=== PATIENT | male | born 1955 | race Caucasian/White ===

== ENCOUNTER 2017-12-24 01:25 | Inpatient (IN) | payer OTHER ==
[~2017-12-24 01:25] MED LIST: LISINOPRIL10 M1 PO; LOPRESSOR50 M1 PO; XARELTO10 M1 PO
--- NOTE | 2017-12-24 09:47 | Admission Core Measures ---
Acute Coronary Syndrome (CM) ACS Core Measures Acute Coronary Syndrome Diagnosis No Congestive Heart Failure (NEW) CHF Core Measures Congestive Heart Failure Diagnosis No Cerebrovascular Accident (NEW) CVA Core Measures CVA/TIA Diagnosis No Venous Thromboembolism VTE Core Daniel (View Protocol) VTE Risk Factors Surgery No Mechanical VTE Prophylaxis d/t N/A MechProphylax Ordered No VTE Pharm Prophylaxis d/t NA PharmProphylax ordered Problem List As ranked by this Provider includes Assessment & Plan 1. Unilateral primary osteoarthritis, left hip HOME MEDS Home Med List Lisinopril 10 MG TABLET 1 TAB PO BID HTN (Reported) Metoprolol Tartrate (Lopressor) 50 MG TABLET 1 TAB PO BID CARDIAC (Reported) Rivaroxaban (Xarelto) 10 MG TABLET 1 TAB PO DAILY CARDIAC (Reported)
--- NOTE | 2017-12-24 09:52 | Surg Short-stay <48hrs Dis Sum ---
Visit Information Visit Dates Admission Date: 12/24/17 Discharge Date: 12/26/17 Surgical Short Stay DC Summary Admission Diagnosis: Primary osteoarthritis, left hip Final Diagnosis: Same, status post left total hip arthroplasty Procedure(s): Left total hip arthroplasty Summary/Significant Findings: Patient was admitted to the hospital for an elective left total hip replacement. Procedure was tolerated well and patient was transferred to a general surgical floor. Diet was advanced and tolerated. Physical therapy performed evaluation and treatment. On post op day 1, following a PT treatment, the patient became dizzy, hypotensive and diaphoretic. EKG was evaluated and showed rate controlled atrial fibrillation. A bolus was given resulting in a resolution of symptoms. The patient was transferred to a telemetry floor for further monitoring due to his history of afib. He remained asymptomatic. At time of hospital discharge, vital signs were stable, neurovascular status was intact, and pain was controlled with the use of oral pain medications. was consulted on 12/26/17 for a short episode of rapid afib while the patient was out of bed to the bathroom, which resolved once the patient was resting in bed. After discussing with and , it was decided the eliquis 2.5mg BID dose would be continued until POD#5, when his home dose of xarelto 20 mg daily will be resumed for his chronic afib. also spoke with his ore tester. Condition at Discharge: Stable Discharge Disposition: home health services Discharge instructions provided to patient/family: Yes Post discharge follow-up plan: Follow up with Dr. Villagran in 6 weeks from date of surgery. Please call his office to schedule/confirm this appointment. Copies to: Camilo Galeana MD; Obi Mahan MD
[2017-12-24] MEDS ORDERED: OMEPRAZOLE20 M2 PO (09:58)
[2017-12-24] MEDS ORDERED: DILAUDID2 M1 PO (09:58)
[2017-12-24] MEDS ORDERED: COLACE100 M1 PO (09:58)
[2017-12-24] MEDS ORDERED: MIRALAX17 G1 PO (09:58)
[2017-12-24] MEDS ORDERED: ELIQUIS2.5 M1 PO (09:58)
--- NOTE | 2017-12-24 10:03 | Patient Discharge Instructions ---
Discharge Instructions General Discharge Information You were seen/treated for: Left hip pain due to osteoarthritis You had these procedures: Left total hip arthroplasty Watch for these problems: Increasing pain despite the use of pain medication Increasing redness, warmth or swelling Drainage of any type from incision Inability to bear weight on operative leg Persistent nausea and vomiting Fever greater than 101.5 degrees Other wound care: Please keep wound clean and dry. No ointments or lotions of any type on or near incision. Your dressing will be changed by your nurse on the second day after your surgery. Daily dry dressing changes are recommended each day thereafter. You may shower 48hr after surgery. Do not soak your wound- no tub baths or swimming. Special Instructions: Eliquis: You are taking this medication to help prevent blood clot formation. Take as directed until 12/28/18, and then resume xarelto on 12/29/17. DO NOT TAKE XARELTO WHILE TAKING ELIQUIS Also indocin will be taken three times/day along with all other prescribed medication for ten days to minimize left hip heterotopic ossification Omeprazole: Take this medication to protect your stomach lining while taking high dose NSAIDs. Constipation: Pain medication can cause constipation. It is recommended that you take Colace and miralax daily. You may discontinue this medication if you develop loose stool or diarrhea. If you wish to continue this medication, it is available over the counter. If you are unable to move your bowels or pass gas after several days, please contact your doctor. Diet Continue normal diet: Yes Activity Activity Limited to: Weight bear as tolerated Other activity limits: Use assisted device as needed Acute Coronary Syndrome Inclusion Criteria At DC or during hospital stay patient has or had the following: ACS DIAGNOSIS No Discharge Core Measures Meds if any: Prescribed or Continued at Discharge Meds if any: NOT Prescribed or Continued at Discharge Congestive Heart Failure Inclusion Criteria At DC or during hospital stay patient has or had the following: CHF DIAGNOSIS No Discharge Core Measures Meds if any: Prescribed or Continued at Discharge Meds if any: NOT Prescribed or Continued at Discharge Cerebrovascular accident Inclusion Criteria At DC or during hospital stay patient has or had the following: CVA/TIA Diagnosis No Discharge Core Measures Meds if any: Prescribed or Continued at Discharge Meds if any: NOT Prescribed or Continued at Discharge Venous thromboembolism Inclusion Criteria VTE Diagnosis No VTE Type NONE VTE Confirmed by (Test) NONE Discharge Core Measures - Per Current guidelines, there needs to be overlap - treatment for the first 5 days of Warfarin therapy. - If discharged on Warfarin prior to 5 days of - overlap therapy, the patient will need to be - assessed for post discharge needs including - *Post discharge parental anticoagulation - *Warfarin and/or parental anticoagulation education - *Follow up date to check INR post discharge At least 5 days overlap therapy as Inpatient No Meds if any: Prescribed or Continued at Discharge Note: Overlap Therapy is Warfarin and Anticoagulant Meds if any: NOT Prescribed or Continued at Discharge
[2017-12-24] MEDS ORDERED: INDOMETHACIN25 M1 PO (11:10)
--- NOTE | 2017-12-24 12:40 | RADIOLOGY REPORT ---
EXAMINATION: XR HIP, LEFT CLINICAL INFORMATION: Status post left total hip replacement COMPARISON: None TECHNIQUE: Two views of the left hip. FINDINGS: Prosthetic components of the left total hip arthroplasty are appropriately aligned. No periprosthetic fracture. Cerclage wire present along the trochanteric region. Gas from recent surgery is present in the surrounding soft tissues. IMPRESSION: Normal postoperative appearance of the left total hip prosthesis.
[2017-12-24 14:25] VITALS: BP 118/70
--- NOTE | 2017-12-24 14:45 | PN- Orthopedic ---
See Addendum Subjective Subjective: POST-OP CHECK Pt in bed, pain controlled, both legs still slightly numb due to spinal. Denies nausea, hopson/ sob/cp. Tolerated clears or has not voided yet. Has not ambulated yet Objective Vital Signs and I&Os Vital Signs Date Time Temp Pulse Resp B/P B/P Pulse O2 O2 Flow FiO2 Mean Ox Delivery Rate 12/24 1425 97.4 73 14 118/70 97 Intake & Output 12/24 1600 12/24 0800 12/24 0000 12/23 1600 12/23 0800 12/23 0000 Intake Total Output Total Balance Patient 182 lb Weight Physical Exam: gen- NAD resp-clear cardio-rrr abd- nd, soft, nt ext-left hip soft, dressing clean and dry. 2+ PT pulse. distal motor function intact Assessment/Plan Assessment/Plan 62yo M SP L TARA POD0. stable Pain management PT- WBAT dvt ppx- ASA reg diet encourage IS regular home meds Core Measures Venous Thromboembolism VTE Risk Factors Surgery No Mechanical VTE Prophylaxis d/t N/A MechProphylax Ordered No VTE Pharm Prophylaxis d/t NA PharmProphylax ordered
[2017-12-24 16:00] VITALS: BP 95/63
[2017-12-24 18:00] VITALS: BP 90/70
--- NOTE | 2017-12-24 18:13 | Operative Report ---
Operative/Inv Procedure Report Surgery Date: 12/24/17 Name of Procedure: Left total hip replacement Pre-Operative Diagnosis: Primary left hip DJD Post-Operative Diagnosis: Same Estimated Blood Loss: 350 Surgeon/Site Specialist: Rafi Villagran MD Anesthesia: block Operative/Procedure Note Note: Description of Procedure: The patient was taken to the operating room and positively identified. After induction of spinal anesthesia and administration of appropriate pre-operative antibiotics, the patient was positioned supine on the operating room table and all bony prominences were well padded. After performing a surgical timeout, the left lower extremity was prepped and draped in the usual sterile fashion. A direct anterior approach was made to the left hip. The incision was carried sharply through superficial soft tissues to the level of the fascia. Meticulous hemostasis was maintained with Bovie electocautery. The fascia over the tensor fascia lexi muscle was opened sharply and the interval between the TFL and the sartorius was entered bluntly taking care to stay lateral to the lateral femoral cutaneous nerve. Retractors were placed around the femoral neck and the pericapsular fat was identified. The ascending branches of the lateral femoral circumflex vessels were identified and carefully coagulated. The pericapsular fat and anterior capsule were then resected. A napkin ring osteotomy was performed and the femoral head was removed without difficulty. Attention was then turned to the acetabulum. After appropriate placement of retractors, the acetabulum was exposed. Soft tissue was cleaned from the acetabular margin and notch. Overhanging osteophytes were removed and the teardrop was exposed. The acetabulum was then sequentially reamed to accept a 60 mm Raul Tritanium hemispherical solid shell. This was impacted into place in the appropriate position and fitted with a 36 mm Trident X3 zero degree polyethylene insert. Attention was then turned to the femur. After performing the appropriate ligament releases, the proximal femur was exposed. It was then sequentially broached to accept a size 8 Raul accolade 2 127 neck angle stem. This was trialed for leg length and stability. The trial component was removed and the final component was impacted into place. The trunnion was carefully cleaned and fit with a 36 mm, +0 Biolox delta ceramic femoral head. The hip was reduced and put through a full range of motion and found to be stable. The articular space was then irrigated with sterile saline. The periarticular soft tissues were infilitrated with Marcaine. The fascial layer was closed with interrupted #1 vicryl suture and the skin was re-approximated with interrupted 2 -0 vicryl. The skin was closed with a running 3-0 V-Lock suture. Steri-strips and a sterile dressing were applied. The patient was awakened and taken to the recovery room in satisfactory condition.
[2017-12-24 22:39] VITALS: BP 92/70
[2017-12-25 02:00] VITALS: BP 98/70
[2017-12-25 06:00] VITALS: BP 136/90
--- NOTE | 2017-12-25 07:47 | PN- Orthopedic ---
Subjective Subjective: mild pain L hip, controlled w pain meds. no acute events overnight. no other complaints. Objective Vital Signs and I&Os Vital Signs Date Time Temp Pulse Resp B/P B/P Pulse O2 O2 Flow FiO2 Mean Ox Delivery Rate 12/25 0600 97.7 84 14 136/90 97 Room Air 12/25 0200 98.2 68 16 98/70 96 Room Air 12/24 2239 98.3 89 18 92/70 96 12/24 212 89 92/70 12/24 212 89 92/70 12/24 2017 Room Air Room Air 12/24 1800 98.0 72 18 90/70 96 Room Air 12/24 1600 97.2 78 18 95/63 100 Room Air 12/24 1425 97.4 73 14 118/70 97 Intake & Output 12/25 0800 12/25 0000 12/24 1600 12/24 0800 12/24 0000 12/23 1600 Intake Total 480 600 Output Total 450 850 Balance -450 -370 600 Intake, IV 600 Intake, Oral 480 Output, Urine 450 850 Patient 186 lb 182 lb Weight Weight Bed scale Measurement Method Physical Exam: Well-developed well-nourished no apparent distress. HEENT: Atraumatic, extraocular motion intact Neck: Supple, no lymphadenopathy Respiratory: No respiratory distress Extremities: No edema Left lower extremity hip dressing in place, Dressing clean dry and intact Mild thigh swelling No signs of infection. No shortening or rotation Hip range of motion is limited and without unexpected pain Neurovascularly intact distally Bilateral calves are supple, nontender. Neuro: Alert and oriented x3 Psych: Mood affect normal, normal memory normal judgment. Skin: Warm and dry, no rash on exposed skin Assessment/Plan Assessment/Plan Postop day #1 status post left total hip arthroplasty anterior approach Perioperative antibiotics. Pain medication as needed. Out of bed Physical therapy, weightbearing as tolerated DC IV fluids Regular diet Follow a.m. labs Eliquis for DVT prophylaxis and hx of afib for 1w, then change back to xeralto ALPS for DVT prophylaxis Regular home meds Dressing change postop day 2 Possible discharge home later today with visiting nurse services if labs acceptable and she clears physical therapy Core Measures Venous Thromboembolism VTE Risk Factors Surgery No Mechanical VTE Prophylaxis d/t N/A MechProphylax Ordered No VTE Pharm Prophylaxis d/t NA PharmProphylax ordered
[2017-12-25 09:11] LABS: ABSOLUTE BASOPHIL COUNT 0.1 /CUMM (0.0-0.2); ABSOLUTE EOSINOPHIL COUNT 0 /CUMM (0.0-0.7); ABSOLUTE GRANULOCYTE CT 11.2 /CUMM (1.4-6.5); ABSOLUTE MONOCYTE COUNT 1.1 /CUMM (0.10-0.60); BASOPHIL % 0.7 % (0.0-2.0); EOSINOPHIL % 0.3 % (0-5); GRANULOCYTE % 77.5 % (42.2-75.2); HEMATOCRIT 40.3 % (42-52); MEAN CORPUSCULAR HGB 30.5 PG (27.0-31.0); MEAN CORPUSCULAR HGB CONC 33.7 G/DL (33.0-37.0); MEAN CORPUSCULAR VOLUME 90.6 FL (80.0-94.0); MEAN PLATELET VOLUME 9.9 FL (7.4-10.4); PLATELET COUNT 231 /CUMM (130-400); RBC DISTRIBUTION WIDTH 13.5 % (11.5-14.5); RED BLOOD CELL CT 4.45 /CUMM (4.70-6.10); WHITE BLOOD CELL COUNT 14.4 /CUMM (4.8-10.8)
--- NOTE | 2017-12-25 11:48 | Event Note ---
Event Note Event Note: Rapid response called for dizziness and diaphoresis after patient got oob and walked with physical therapy. There was no fall, there was no loss of consciousness. A stat EKG was ordered, patient while on monitors was found to be in controlled rate of atrial fibrillation. A bolus of 500 cc normal saline was ordered. Patient mentating well, Cranial Nerve assessment intact, was feeling resolution of symptoms. Will continue to monitor, will place on telemetry unit for overnight monitoring.
--- NOTE | 2017-12-25 12:25 | Cons- Medical ---
Huma Brown MD 12/25/17 1223: General Information and HPI Consulting Request Date of Consult: 12/25/17 Requested By: Rafi Villagran MD Reason for Consult: Episode of syncope, found to be in Low BP Source of Information: patient, old records Exam Limitations: no limitations History of Present Illness: Patient is a 62-year-old male with significant past medical history of hypertension, atrial fibrillation (2009) on Xeralto (5 -6 yrs) admitted for left total hip replacement for primary osteoarthritis of left hip. Patient underwent left total hip arthroplasty on 12/24/2017.Today rapid response was called after patient was feeling dizziness and diaphoresis while working with physical therapy.According to the event note patient was having atrial fibrillation with controlled heart rate. We will called to evaluate the patient and give opinion. He describes his episode that he was working with PT and walked on the floor and afterwards he sat down on the chair, he was okay but feeling a little bit weak and when he leans on his back he suddenly felt, nausea, dizziness, sweating, which lasted for less than a minute. He denies any chest pain, palpitation, shortness of breath, headache, abdominal pain, tongue bite, incontinence of the screw in the urine. The vital signs at that time was blood pressure 84/50, pulse 77, SPO2 100% on room air. She recovered completely within a minute without any confusion onwards. Since last couple of days his fluid and food intake is low, he has less amount of sleep. Of note he had couple of episodes of passing out in 2009 he was diagnosed as having, atrial fibrillation and hypertension. Initially he was treated with aspirin but later around 3-4 years ago continued on Xarelto. 1-1/2 years ago he again had passing out spell while playing tennis but recovered completely. Personal history -patient lives at home, walk without walker and started using crutches since last 3 or 4 days because of the pain in the left hip, denies smoking cigarettes though uses cigars occasionally, occasional use of alcohol, denies any illicit drug abuse. He had colonoscopy at the age of 14 which was normal. Past medical history - Atrial fibrillation -2009 Hypertension Family history - Mother and brother -diabetes Father -history of colon cancer Brother -lymphoma Allergies/Medications Allergies: Coded Allergies: No Known Allergies (12/23/17) NKA PER ANTIBIOTIC ORDER SHEET OF 12/23/17 (SJS) Home Med List: Apixaban (Eliquis) 2.5 MG TABLET 1 TAB PO BID CLOT PREVENTION FINISH ELIQUIS ON 12/28/17. RESUME XARELTO ON 12/29/17 Docusate Sodium (Colace) 100 MG CAPSULE 1 CAP PO BID CONSTIPATION Hydromorphone HCl (Dilaudid) 2 MG TABLET 1-2 TAB PO Q4-6 PRN PAIN Indomethacin 25 MG CAPSULE 1 CAP PO TID PAIN with food Lisinopril 10 MG TABLET 1 TAB PO BID HTN (Reported) Metoprolol Tartrate (Lopressor) 50 MG TABLET 1 TAB PO BID CARDIAC (Reported) Omeprazole 20 MG CAPSULE.DR 1 CAP PO DAILY ULCER PREVENTION Polyethylene Glycol 3350 (Miralax) 17 GRAM POWD.PACK 1 PAC PO DAILY CONSTIPATION dissolve in water Review of Systems Review of Systems Constitutional: Reports: no symptoms, weakness. Musculoskeletal: Reports: joint pain, joint swelling. Past History Medical History Cardiovascular: AFIB, hypertension Musculoskeletal: osteoarthritis Surgical History Surgical History: hip replacement Psychosocial History Where Do You Live? Home Smoking Status: Never Smoked Exam & Diagnostic Data Last 24 Hrs of Vital Signs/I&O Vital Signs Date Time Temp Pulse Resp B/P B/P Pulse O2 O2 Flow FiO2 Mean Ox Delivery Rate 12/25 0936 91 20 120/70 12/25 0936 91 20 120/80 12/25 0600 97.7 84 14 136/90 97 Room Air 12/25 0200 98.2 68 16 98/70 96 Room Air 12/24 2239 98.3 89 18 92/70 96 12/24 2127 89 92/70 12/24 2127 89 92/70 12/24 2017 Room Air Room Air 12/24 1800 98.0 72 18 90/70 96 Room Air 12/24 1600 97.2 78 18 95/63 100 Room Air 12/24 1425 97.4 73 14 118/70 97 Intake & Output 12/25 1600 12/25 0800 12/25 0000 Intake Total 1100 480 Output Total 450 850 Balance 650 -370 Intake, IV 600 Intake, Oral 500 480 Output, Urine 450 850 Patient 84.538 kg Weight Weight Bed scale Measurement Method Physical Exam General Appearance: well developed/nourished, no apparent distress, alert, awake , comfortable Head: atraumatic, normal appearance, active bleeding Eyes: Bilateral: normal appearance. Ears, Nose, Throat: normal pharynx, normal ENT inspection, hearing grossly normal Neck: normal inspection, supple, full range of motion, no JVD Respiratory: normal breath sounds, chest non-tender, no respiratory distress, quiet respiration, lungs clear Cardiovascular: irregularly irregular Peripheral Pulses: 4+ tibialis posterior (R), 4+ tibialis posterior (L), 4+ dorsalis pedis (R), 4+ dorsalis pedis (L) Gastrointestinal: soft, non-tender, no organomegaly Extremities: left side surgical area was non tender, no fluctuation, dry dressing, he is able to move his joint with slight pain Last 24 Hrs of Labs/Axel: Laboratory Tests 12/25/17 0821: Anion Gap 9, Estimated GFR > 60, BUN/Creatinine Ratio 22.5, CBC w Diff NO MAN DIFF REQ, RBC 4.45 L, MCV 90.6, MCH 30.5, MCHC 33.7, RDW 13.5, MPV 9.9, Gran % 77.5 H, Lymphocytes % 14.1 L, Monocytes % 7.4, Eosinophils % 0.3, Basophils % 0.7, Absolute Granulocytes 11.2 H, Absolute Lymphocytes 2.0, Absolute Monocytes 1.1 H, Absolute Eosinophils 0, Absolute Basophils 0.1 Diagnostic Data EKG Results Atrial fibrillation, heart rate 77, QTc 450, Assessment/Plan Assessment/Plan Patient is a 62-year-old male with significant past medical history of hypertension, atrial fibrillation (2009) on Xeralto (5 -6 yrs) admitted for left total hip replacement for primary osteoarthritis of left hip. Patient underwent left total hip arthroplasty on 12/24/2017.Today rapid response was called after patient was feeling dizziness and diaphoresis while working with physical therapy.According to the event note patient was having atrial fibrillation with controlled heart rate. We will called to evaluate the patient and give opinion. Vital signs -pulse 88, respiratory rate 18, blood pressure 108/80, SPO2 96% on room air. Blood workup showed hemoglobin 13.6, WBC 14.4, MCV 90.6, platelet count 231, serum sodium 141, potassium 4.2, chloride 106, anion gap 9, BUN 18, creatinine 0.8. Postop x-ray of the left hip -appropriately aligned prosthesis, no periprosthetic fracture. Assessment and plan - Patient is a 62-year-old male with past medical history of hypertension, atrial fibrillation currently on Eliquis for postop DVT prophylaxis, had episode of sudden onset of dizziness, nausea, sweating. He denies for any chest pain palpitation and shortness of breath. He denies for any pain in the left hip while having this symptoms. His vital signs showed pulse of 77, blood pressure 84/58. He was completely recovered after a minute. As his blood pressure was low he was given 500 cc of IV fluid. Currently his blood pressure is 122/84. It seems he had vasovagal. EKG was showing some nonspecific changes including P waves are not followed by QRS complex, as he is having history of atrial fibrillation and is on metoprolol, we discussed with patient navigator and according to them they are related to AF. Plan * Advised to transfer the patient to telemetry for overnight cardiac monitoring. * Orhtostatic BP * Gentel Hydration - NS 75cc/hr * If overnight telemetry monitoring does show any acute event, than will consider cardiology consult. * If Over[place] monitoring is uneventful and his vitals remain stable than we can plan for discharge, with advise to follow up with his patient navigator. Discussed with Dr Ennis. Problem List: 1. Unilateral primary osteoarthritis, left hip 2. Atrial fibrillation and flutter 3. Hypertension Consult Acknowledgment - Thank you for your consult request. Obinna NUR,[facility] 12/25/17 1509: Assessment/Plan Consult Acknowledgment - Thank you for your consult request. Attending Review Statement Attending Statement Attending Statement: examined this patient, discuss w/resident/PA/ACUPUNCTURE PHYSICIAN, agreed w/resident/PA/ACUPUNCTURE PHYSICIAN, reviewed EMR data (avail), discussed with nursing, discussed with case mgmt, reviewed images, amended to note Attending Assessment/Plan: 62 y/o m with pmh sig for hypertension, atrial fibrillation (2009) on Xeralto (5 -6 yrs) admitted for left total hip replacement for primary osteoarthritis of left hip. A R COLLECTIONS REP was called today after patient got up and walked with PT. Pt was slightly dizzy. He was put on the chair. There was no fall. Patient felt somewhat sweaty and lightheaded. After he sat, his symptoms started to disappear. He denies any chest pain, palpitations. Patient did mention that about few years ago he had these episodes off dizziness and syncope and his doctor had adjusted some of his medications. They have attempted cardioversion and years ago but that was unsuccessful. He never underwent any ablation. Over the last year and a half he has been maintained pretty well on his current medications. He currently denies any chest pain, palpitations, shortness of breath, headache. This seems like a vasovagal episode. Vital Signs Date Time Temp Pulse Resp B/P B/P Pulse O2 O2 Flow FiO2 Mean Ox Delivery Rate 12/25 1453 98.3 86 20 122/84 97 12/25 1306 88 18 108/80 96 Room Air 12/25 1228 98.1 82 14 116/84 96 Room Air 12/25 0936 91 20 120/70 12/25 0936 91 20 120/80 12/25 0600 97.7 84 14 136/90 97 Room Air 12/25 0200 98.2 68 16 98/70 96 Room Air 12/24 2239 98.3 89 18 92/70 96 12/24 212 89 92/70 12/24 2126 89 92/70 12/24 2017 Room Air Room Air 12/24 1800 98.0 72 18 90/70 96 Room Air 12/24 1600 97.2 78 18 95/63 100 Room Air on exam; aox3, nad. cv; s1,s2, irregular resp; clear abd; soft, nt, bs+ ext; no edema. ms: + dressing on the left hip. Laboratory Tests 12/25 0821 Chemistry Sodium (137 - 145 mmol/L) 141 Potassium (3.5 - 5.1 mmol/L) 4.2 Chloride (98 - 107 mmol/L) 106 Carbon Dioxide (22 - 30 mmol/L) 27 Anion Gap (5 - 16) 9 BUN (9 - 20 mg/dL) 18 Creatinine (0.7 - 1.2 mg/dL) 0.8 Estimated GFR (>60 ml/min) > 60 BUN/Creatinine Ratio (7 - 25 %) 22.5 Hematology CBC w Diff NO MAN DIFF REQ WBC (4.8 - 10.8 /CUMM) 14.4 H RBC (4.70 - 6.10 /CUMM) 4.45 L Hgb (14.0 - 18.0 G/DL) 13.6 L Hct (42 - 52 %) 40.3 L MCV (80.0 - 94.0 FL) 90.6 MCH (27.0 - 31.0 PG) 30.5 MCHC (33.0 - 37.0 G/DL) 33.7 RDW (11.5 - 14.5 %) 13.5 Plt Count (130 - 400 /CUMM) 231 MPV (7.4 - 10.4 FL) 9.9 Gran % (42.2 - 75.2 %) 77.5 H Lymphocytes % (20.5 - 51.1 %) 14.1 L Monocytes % (1.7 - 9.3 %) 7.4 Eosinophils % (0 - 5 %) 0.3 Basophils % (0.0 - 2.0 %) 0.7 Absolute Granulocytes (1.4 - 6.5 /CUMM) 11.2 H Absolute Lymphocytes (1.2 - 3.4 /CUMM) 2.0 Absolute Monocytes (0.10 - 0.60 /CUMM) 1.1 H Absolute Eosinophils (0.0 - 0.7 /CUMM) 0 Absolute Basophils (0.0 - 0.2 /CUMM) 0.1 EKG shows atrial fibrillation with no acute ST-T wave changes. Assessment and recommendations: 62 y/o m with pmh sig for hypertension, atrial fibrillation (2009) on Xeralto (5 -6 yrs) admitted for left total hip replacement for primary osteoarthritis of left hip. A R COLLECTIONS REP was called today after patient got up and walked with PT. Pt was slightly dizzy. Medical consult was obtained for the management off presyncope. Patient is currently being transferred to telemetry. We will observe him overnight on the mill order scheduler. We would recommend gentle IV hydration 1 L of normal saline. Normal saline at 75 mL per hour 1 L. Encourage hydration by mouth as well as oral intake. Continue his home medications including his cardiac meds and Xarelto. For pain management patient is ordered adequate regimen. If any acute arrhythmias happen on mill order scheduler, would recommend getting cardiology consult. DVT px: Xarelto. Thank you a follow along with you.
[2017-12-25 12:28] VITALS: BP 116/84
[2017-12-25 13:06] VITALS: BP 108/80
[2017-12-25 14:53] VITALS: BP 122/84
[2017-12-25 20:25] VITALS: BP 124/78
[2017-12-26] VITALS: BP 110/76
[2017-12-26 04:02] VITALS: BP 114/80
--- NOTE | 2017-12-26 08:11 | PN- Orthopedic ---
Subjective Subjective: pod#2 s/p left andrea presyncopal episode yesterday requiring overnight telemetry did ambualte yesterday evening without cp, dizziness, palpitations, sob currently denies cp, sob, dizziness, palpitations, n+v Objective Vital Signs and I&Os Vital Signs Date Time Temp Pulse Resp B/P B/P Pulse O2 O2 Flow FiO2 Mean Ox Delivery Rate 12/26 0402 97.7 104 12 114/80 97 Room Air 12/26 0000 98.0 88 20 110/76 96 Room Air 12/25 2111 97.2 85 20 124/78 12/25 2111 97.2 85 20 124/78 12/25 2025 97.2 85 20 124/78 99 / 1453 98.3 86 20 122/84 97 12/25 1306 88 18 108/80 96 Room Air 12/25 1228 98.1 82 14 116/84 96 Room Air 12/25 0936 91 20 120/70 12/25 0936 91 20 120/80 Intake & Output 12/26 1600 12/26 0800 16 0000 12/25 1600 12/25 0800 12/25 0000 Intake Total 120 194 580 4049 480 Output Total 500 3400 1000 850 Balance -380 -3160 900 1200 -370 Intake, IV 600 1200 Intake, Oral 120 202 372 0842 480 Output, Urine 500 3400 1000 850 Patient 182 lb 186 lb Weight Weight Chair scale Bed scale Measurement Method Physical Exam: cv: irreg(h/o afib) lungs; clear abd: soft, +bs ext: drsg changed, wound c/d/i thigh soft, no calf tenderness bilat Assessment/Plan Assessment/Plan ortho stable no cardiac events overnight plan ok for home d/c from ortho standpoint will f/u with medicine prior to d/c cont current pharm regime Core Measures Venous Thromboembolism VTE Risk Factors Surgery No Mechanical VTE Prophylaxis d/t N/A MechProphylax Ordered No VTE Pharm Prophylaxis d/t NA PharmProphylax ordered
--- NOTE | 2017-12-26 08:19 | PN- Medicine Consult ---
Stephanie NUR,Huma 12/26/17 0818: Assessment/PlanMedical Consult Assessment/Plan Assessment: Patient is a 62-year-old male with significant past medical history of hypertension, atrial fibrillation (2009) on Xeralto (5 -6 yrs) admitted for left total hip replacement for primary osteoarthritis of left hip.Patient underwent left total hip arthroplasty on 12/24/2017.We advised to transfer the patient to telemetry for overnight telemetry monitoring, after he had an episode of vasovagal syncope. Currently patient is feeling much better, he denies for any episodes of chest pain, palpitation, sweating, dizziness, nausea, vomiting. He ate dinner and drank a lot of fluids. He feels more energetic.Yesterday evening he walked without any difficulties. Vital signs -temperature 99.9, pulse 81, respiratory 20, blood pressure 122/70, SPO2 96%. Physical exam -conscious, cooperative, alert 3, skin -pale, oral mucosa well hydrated, lungs -bilaterally equal air entry, heart S1-S2 normal, left sided wound -dressing is dry, surrounding area is not erythematous, slightly tender. Pulses are palpable both dorsalis pedis and posterior tibial. Telemetry monitoring -most of the time patient was on only 1 lead. So we cannot comment about exact event.His maximum heart rate was 118 - 130. Intake/output -3340/4400; -1060 Plan: * He had episodes of tachycardia, and probably need adjustment in the medication and cardiac consult. Can consider discharge per cardiology rcms.He need to follow his cardiolgy for further management. * Continue current medication for now. * Adequate pain management. * Post ope care per primary team. Discussed with Dr. Venita Yeboah. Subjective Subjective: Patient denies for any complains. Review of Systems Constitutional: Reports: no symptoms (See assesment). Objective Last 24 Hrs of Vital Signs/I&O Vital Signs Date Time Temp Pulse Resp B/P B/P Pulse O2 O2 Flow FiO2 Mean Ox Delivery Rate 12/26 0845 99.1 81 20 122/70 96 Room Air 12/26 0402 97.7 104 12 114/80 97 Room Air 12/26 0000 98.0 88 20 110/76 96 Room Air 12/25 2110 97.2 85 20 124/78 12/25 2110 97.2 85 20 124/78 12/25 2024 97.2 85 20 124/78 99 12/25 1453 98.3 86 20 122/84 97 12/25 1306 88 18 108/80 96 Room Air 12/25 1228 98.1 82 14 116/84 96 Room Air 12/25 0936 91 20 120/70 12/25 0936 91 20 120/80 Intake & Output 12/26 1600 12/26 0800 12/26 0000 Intake Total 120 240 Output Total 500 3400 Balance -380 -3160 Intake, Oral 120 240 Output, Urine 500 3400 Patient 82.327 kg Weight Weight Chair scale Measurement Method Current Medications: Current Medications Sig/Rani Start time Last Medication Dose Route Stop Time Status Admin Acetaminophen 1,000 MG Q6P PRN 12/25 1345 AC 12/25 N/A 1 UNIT IV 1348 Acetaminophen 650 MG Q4P PRN 12/25 1200 AC PO Apixaban 2.5 MG BID 12/25 2200 AC 12/26 PO 1034 Docusate Sodium 100 MG BID 12/25 2200 AC 12/26 PO 1034 Hydromorphone HCl 2 MG Q4P PRN 12/25 1200 AC PO Hydromorphone HCl 4 MG Q4P PRN 12/25 1200 AC 12/26 PO 0629 Indomethacin Sodium 25 MG TID 12/25 1600 AC 12/26 PO 1034 Lisinopril 10 MG BID 12/25 2200 AC 12/26 PO 1034 Melatonin 5 MG AT BEDTIME 12/25 2200 AC 12/25 PO 2111 Metoprolol Tartrate 50 MG BID 12/25 2200 AC 12/26 PO 1034 Omeprazole 20 MG DAILY AC 12/26 0700 AC 12/26 PO 0613 Ondansetron HCl 4 MG Q6P PRN 12/25 1200 AC IV Polyethylene Glycol 17 GM DAILY 12/26 1000 AC 12/26 PO 1035 Promethazine HCl 12.5 MG Q6P PRN 12/25 1200 AC IV 12/31 1014 Results Last 24 Hrs Lab/Axel Results: Not done Obinna NUR,Venita 12/26/17 1250: Attending MD Review Statement Attending Sign Off Attending Cosign Statement: I have: examined this patient, reviewed avalbl EMR data, personally reviewd images, discussd w/resident/PA/BESSEMER CONVERTER OPERATOR, discussed mgmt plan w/anali, discussed mgmt plan w/pt, agreed w/resident/PA/BESSEMER CONVERTER OPERATOR, amended to note. Other Findings: Patient seen and examined, overall he is doing much better. Denies any further episodes of dizziness. This morning patient became tachycardic between 130s to 150s on the pitch gatherer. Remains in afib. He wants to be tested for Lyme disease. Vital Signs Date Time Temp Pulse Resp B/P B/P Pulse O2 O2 Flow FiO2 Mean Ox Delivery Rate 12/26 1034 134 122/70 12/26 1034 122/70 12/26 0845 99.1 81 20 122/70 96 Room Air 12/26 0402 97.7 104 12 114/80 97 Room Air 12/26 0000 98.0 88 20 110/76 96 Room Air 12/25 2111 97.2 85 20 124/78 12/25 2111 97.2 85 20 124/78 12/25 2025 97.2 85 20 124/78 99 12/25 1453 98.3 86 20 122/84 97 12/25 1306 88 18 108/80 96 Room Air on exam; aox3, nad. cv; s1,s2, rrr resp; clear abd; soft, nmt, bs+ ext; no edema MS: + dressing left hip. Laboratory Tests 12/26 12/26 1220 1047 Chemistry Sodium Pending Potassium Pending Chloride Pending Carbon Dioxide Pending Anion Gap Pending BUN Pending Creatinine Pending BUN/Creatinine Ratio Pending Glucose Pending Phosphorus Pending Magnesium Pending Hematology CBC w Diff Pending WBC Pending RBC Pending Hgb Pending Hct Pending MCV Pending MCH Pending MCHC Pending RDW Pending Plt Count Pending MPV Pending Serology Lyme Disease Antibody Pending Assessment and recommendations: 62 y/o m with pmh sig for hypertension, atrial fibrillation (2009) on Xeralto (5 -6 yrs) admitted for left total hip replacement for primary osteoarthritis of left hip. ARTIST WOODBLOCK was called yesterday after patient got up and walked with PT. Pt was slightly dizzy. Medical consult was obtained for the management off presyncope. Patient was monitored on telemetry and this morning he did have episode of tachycardia. Recommend getting cardiology consult. We recommend continuing the current medications. I have added Lyme antibody as per patient's request. Patient is adequately hydrated and blood pressure stable. Pain management adequate. Ration is working with physical therapy. DVT px; Eliquis. Post op care per ortho. Needs Cardiology input before discharge.
[2017-12-26 08:45] VITALS: BP 122/70
--- NOTE | 2017-12-26 11:40 | Cons- Cardiology ---
General Information and HPI Consulting Request Date of Consult: 12/26/17 Requested By: Rafi Villagran MD Reason for Consult: ATRIAL FIBRILLATION WITH INTERMITTENTLY RAPID RATE; PRESYNCOPE Source of Information: patient Exam Limitations: no limitations History of Present Illness: Patient is a 62-year-old male who is usually followed Dr. Yomi Katz as his primary rn advice. The patient has a history of hypertension, atrial fibrillation on oral anticoagulation, who underwent left hip replacement on 12/24/2017, uneventfully. The patient was transferred to telemetry yesterday after feeling dizzy and lightheaded with diaphoresis and presyncope during physical therapy. At that time, his atrial fibrillation was stable and the rate was also stable. There were no other ECG changes noted. The patient was transferred to telemetry for further monitoring. Today, the patient is feeling well. He got up to go to the bathroom with no difficulty. While straining at the toilet he became slightly more tachycardic but otherwise has been fine with no issues. Allergies/Medications Allergies: Coded Allergies: No Known Allergies (12/23/17) NKA PER ANTIBIOTIC ORDER SHEET OF 12/23/17 ([facility]) Home Med List: Apixaban (Eliquis) 2.5 MG TABLET 1 TAB PO BID CLOT PREVENTION FINISH ELIQUIS ON 12/28/17. RESUME XARELTO ON 12/29/17 Docusate Sodium (Colace) 100 MG CAPSULE 1 CAP PO BID CONSTIPATION Hydromorphone HCl (Dilaudid) 2 MG TABLET 1-2 TAB PO Q4-6 PRN PAIN Indomethacin 25 MG CAPSULE 1 CAP PO TID PAIN with food Lisinopril 10 MG TABLET 1 TAB PO BID HTN (Reported) Metoprolol Tartrate (Lopressor) 50 MG TABLET 1 TAB PO BID CARDIAC (Reported) Omeprazole 20 MG CAPSULE.DR 1 CAP PO DAILY ULCER PREVENTION Polyethylene Glycol 3350 (Miralax) 17 GRAM POWD.PACK 1 PAC PO DAILY CONSTIPATION dissolve in water Current Medications: Current Medications Sig/Rani Start time Last Medication Dose Route Stop Time Status Admin Acetaminophen 1,000 MG Q6P PRN 12/25 1345 AC 12/25 N/A 1 UNIT IV 1348 Acetaminophen 650 MG Q4P PRN 12/25 1200 AC PO Acetaminophen 650 MG Q4P PRN 12/24 1345 DC 12/24 PO 2126 Apixaban 2.5 MG BID 12/25 2200 AC 12/26 PO 1034 Apixaban 2.5 MG BID 12/25 1000 DC 12/25 PO 0936 Docusate Sodium 100 MG BID 12/25 2200 AC 12/26 PO 1034 Docusate Sodium 100 MG BID 12/24 2200 DC 12/25 PO 0936 Hydromorphone HCl 2 MG Q4P PRN 12/25 1200 AC PO Hydromorphone HCl 4 MG Q4P PRN 12/25 1200 AC 12/26 PO 0629 Hydromorphone HCl 2 MG Q4P PRN 12/24 1345 DC PO Hydromorphone HCl 4 MG Q4P PRN 12/24 1345 DC 12/25 PO 0714 Indomethacin Sodium 25 MG TID 12/25 1600 AC 12/26 PO 1034 Indomethacin Sodium 25 MG TID 12/24 1600 DC 12/25 PO 0937 Lisinopril 10 MG BID 12/25 2200 AC 12/26 PO 1034 Lisinopril 10 MG BID 12/24 2200 DC 12/25 PO 0936 Melatonin 5 MG AT BEDTIME 12/25 2200 AC 12/25 PO 2111 Metoprolol Tartrate 50 MG BID 12/25 2200 AC 12/26 PO 1034 Metoprolol Tartrate 50 MG BID 12/24 2200 DC 12/25 PO 0936 Morphine Sulfate 2 MG Q2P PRN 12/25 0330 DC 12/25 IV 0329 Omeprazole 20 MG DAILY AC 12/26 0700 AC 12/26 PO 0613 Omeprazole 20 MG DAILY AC 12/25 0700 DC 12/25 PO 0610 Ondansetron HCl 4 MG Q6P PRN 12/25 1200 AC IV Ondansetron HCl 4 MG Q6P PRN 12/24 1345 DC IV Polyethylene Glycol 17 GM DAILY 12/26 1000 AC 12/26 PO 1035 Polyethylene Glycol 17 GM DAILY 12/25 1000 DC 12/25 PO 0936 Promethazine HCl 12.5 MG Q6P PRN 12/25 1200 AC IV 12/31 1014 Promethazine HCl 12.5 MG Q6P PRN 12/24 1345 DC IV 12/31 1014 Sodium Chloride 500 ML BOLUS ONE 12/25 1130 DC 12/25 IV 12/25 1229 1137 Past History Medical History Cardiovascular: AFIB, hypertension Musculoskeletal: osteoarthritis Surgical History Surgical History: hip replacement Psychosocial History Where Do You Live? Home Smoking Status: Never Smoked Exam & Diagnostic Data Vital Signs and I&O Vital Signs Date Time Temp Pulse Resp B/P B/P Pulse O2 O2 Flow FiO2 Mean Ox Delivery Rate 12/26 1034 134 122/70 12/26 1034 122/70 12/26 0845 99.1 81 20 122/70 96 Room Air 12/26 0402 97.7 104 12 114/80 97 Room Air 12/26 0000 98.0 88 20 110/76 96 Room Air 12/25 2111 97.2 85 20 124/78 12/25 2111 97.2 85 20 124/78 12/25 2025 97.2 85 20 124/78 99 12/25 1453 98.3 86 20 122/84 97 12/25 1306 88 18 108/80 96 Room Air 12/25 1228 98.1 82 14 116/84 96 Room Air Intake & Output 12/26 1600 12/26 0800 12/26 0000 12/25 1600 12/25 0800 12/25 0000 Intake Total 120 420 823 7604 480 Output Total 500 3400 1000 850 Balance -380 -3160 900 1200 -370 Intake, IV 600 1200 Intake, Oral 120 469 457 6552 480 Output, Urine 500 3400 1000 850 Patient 182 lb 186 lb Weight Weight Chair scale Bed scale Measurement Method Physical Exam: General Appearance: well developed/nourished, no apparent distress, alert, awake , comfortable Head: NORMAL Eyes: Normal Ears, Nose, Throat: normal pharynx, normal ENT inspection, hearing grossly normal Neck: JVP normal; carotid normal bilaterally Respiratory: normal breath sounds, chest non-tender, no respiratory distress, quiet respiration, lungs clear Cardiovascular: irregularly irregular, S1, S2, 1/6 systolic murmur Peripheral Pulses: Normal bilaterally Gastrointestinal: soft, non-tender, no organomegaly Extremities: left side surgical area was non tender Labs/Axel Results: Laboratory Tests 12/25 820 Chemistry Sodium (137 - 145 mmol/L) 141 Potassium (3.5 - 5.1 mmol/L) 4.2 Chloride (98 - 107 mmol/L) 106 Carbon Dioxide (22 - 30 mmol/L) 27 Anion Gap (5 - 16) 9 BUN (9 - 20 mg/dL) 18 Creatinine (0.7 - 1.2 mg/dL) 0.8 Estimated GFR (>60 ml/min) > 60 BUN/Creatinine Ratio (7 - 25 %) 22.5 Hematology CBC w Diff NO MAN DIFF REQ WBC (4.8 - 10.8 /CUMM) 14.4 H RBC (4.70 - 6.10 /CUMM) 4.45 L Hgb (14.0 - 18.0 G/DL) 13.6 L Hct (42 - 52 %) 40.3 L MCV (80.0 - 94.0 FL) 90.6 MCH (27.0 - 31.0 PG) 30.5 MCHC (33.0 - 37.0 G/DL) 33.7 RDW (11.5 - 14.5 %) 13.5 Plt Count (130 - 400 /CUMM) 231 MPV (7.4 - 10.4 FL) 9.9 Gran % (42.2 - 75.2 %) 77.5 H Lymphocytes % (20.5 - 51.1 %) 14.1 L Monocytes % (1.7 - 9.3 %) 7.4 Eosinophils % (0 - 5 %) 0.3 Basophils % (0.0 - 2.0 %) 0.7 Absolute Granulocytes (1.4 - 6.5 /CUMM) 11.2 H Absolute Lymphocytes (1.2 - 3.4 /CUMM) 2.0 Absolute Monocytes (0.10 - 0.60 /CUMM) 1.1 H Absolute Eosinophils (0.0 - 0.7 /CUMM) 0 Absolute Basophils (0.0 - 0.2 /CUMM) 0.1 Diagnostic Data EKG Results AF WITH CONTROLLED RATE AND NSSTTWCS Assessment/Plan Assessment/Plan Assessment: 1. Day 2 post op hip replacement 2. Transient presyncope during PT post op; distant history of prior syncope 3. Atrial fibrillation with intermittently rapid ventricular rate. 4. HTN Recommendations: - COntinue current medications - OOB as tolerated. - PT reassessment today - If stable and without symptoms with PT; OK to discharge later today. - Eliquis 2.5 BID is not adequate coverage for AF; discuss with orthopedics. Over the next 24-72 hours, the patient should be transitioned back to xarelto 20 daily or eliquis 5 BID for embolic protection. - Followup with primary rn advice DR. Yomi Mahan over the next few weeks. Consult Acknowledgment - Thank you for your consult request.
[2017-12-26] MEDS ORDERED: ELIQUIS2.5 M1 PO (11:47)
[2017-12-26] MEDS ORDERED: XARELTO20 M2 PO (11:50)
[2017-12-26 12:48] LABS: ABSOLUTE BASOPHIL COUNT 0 /CUMM (0.0-0.2); ABSOLUTE EOSINOPHIL COUNT 0.2 /CUMM (0.0-0.7); ABSOLUTE GRANULOCYTE CT 9.7 /CUMM (1.4-6.5); ABSOLUTE LYMPH COUNT 2.3 /CUMM (1.2-3.4); ABSOLUTE MONOCYTE COUNT 1.2 /CUMM (0.10-0.60); BASOPHIL % 0.3 % (0.0-2.0); EOSINOPHIL % 1.6 % (0-5); GRANULOCYTE % 72.1 % (42.2-75.2); HEMATOCRIT 38.3 % (42-52); MEAN CORPUSCULAR HGB 30.7 PG (27.0-31.0); MEAN CORPUSCULAR HGB CONC 34.1 G/DL (33.0-37.0); MEAN CORPUSCULAR VOLUME 90.3 FL (80.0-94.0); MEAN PLATELET VOLUME 9.6 FL (7.4-10.4); PLATELET COUNT 282 /CUMM (130-400); RBC DISTRIBUTION WIDTH 13.2 % (11.5-14.5); RED BLOOD CELL CT 4.25 /CUMM (4.70-6.10); WHITE BLOOD CELL COUNT 13.4 /CUMM (4.8-10.8)
[2017-12-26 14:38] VITALS: BP 104/66
== END 2017-12-26 17:20 | disposition home health service (06) | DRG 301 ==
LOC: SDA 01:25 → ENRESERV 13:03 → 2NA 14:07 → 1NO 12-25 15:03 → ENPENDDIS 12-26 07:39 → ENTRNSPT 12-26 17:09 → 1NO 12-26 17:20 → CMPTRNSPT 12-26 17:34
PROVIDERS: Physician Assistant; Physician Assistant Surgical
PROC: 0SRB04A Replacement of Left Hip Joint with Ceramic on Polyethylene Synthetic Substitute, Uncemented, Open Approach (ICD-10-PCS; principal; 2017-12-24)
DX: M16.12 Unilateral primary osteoarthritis, left hip (principal); I95.9 Hypotension, unspecified; R00.0 Tachycardia, unspecified; R55 Syncope and collapse; I48.92 Unspecified atrial flutter; I48.2 Chronic atrial fibrillation; I10 Essential (primary) hypertension; Z72.0 Tobacco use; Z79.01 Long term (current) use of anticoagulants; Z80.0 Family history of malignant neoplasm of digestive organs
CPT/HCPCS: 1NP; 2NASP; 86618; 36592; 73502-LT; 82436; 88304; 93005; 93010; 97110-GO; 97116-GO; 97161-GP; 97530-GO; J0131; J0690; J0735; J1100; J2405; J2550; J3490; J7040; J7042